=== PATIENT | male | born 1930 | race Caucasian/White ===

== ENCOUNTER 2016-09-27 20:49 | Inpatient (IN) | payer MEDICAID, MEDICARE ==
[~2016-09-27] VITALS: Ht 170.2 cm; Wt 64.9 kg
--- NOTE | 2016-09-27 20:55 | NUR ---
PATIENT BROUGHT IN BY DAUGHTER FOR C/O WEAKNESS,DIZZINESS X1 DAY.AUDITORY AND VISUAL HALLUCINATION X 1 WEEK, DAUGHTER ASKED FOR ASSIST INTO WHEELCHAIR, PT IS ALERT, ORIENTED X 3, NO RESP DISTRESS NOTED OR REPORTED UPON ASSESSMENT...MD AT BEDSIDE...
[2016-09-27] MEDS ORDERED: DOCU100C36 PO (21:09)
[2016-09-27] MEDS ORDERED: POTA10TA15 PO (21:09)
[2016-09-27] MEDS ORDERED: FURO40TA5 PO (21:09)
[2016-09-27] MEDS ORDERED: MAGN400O6 PO (21:09)
[2016-09-27] MEDS ORDERED: METOPROLOL ER PO (21:09)
[2016-09-27] MEDS ORDERED: ACET-2154 PO (21:09)
[2016-09-27] MEDS ORDERED: APIX5TAB PO (21:09)
[2016-09-27] MEDS ORDERED: HYDR-3326 PO (21:09)
[2016-09-27] MEDS ORDERED: LORA0.5T PO (21:09)
[2016-09-27] MEDS ORDERED: MORP15TA SL (21:09)
[2016-09-27] MEDS ORDERED: IV NORMAL SALINE 500 ML BAG IV ONE (21:30)
[2016-09-27 21:31] LABS: BASOPHILS # (AUTO) 0.3 K/uL (0.0-8.0); BASOPHILS % (AUTO) 1.8 % (0.0-2.0); EOSINOPHILS # (AUTO) 0.1 K/uL (0.0-0.7); EOSINOPHILS % (AUTO) 0.6 % (0.0-7.0); HEMATOCRIT 39.6 % (40-50); HEMOGLOBIN 13.3 G/DL (14.0-18.0); LYMPHOCYTES # (AUTO) 2.1 K/UL (0.8-4.8); LYMPHOCYTES % (AUTO) 12.5 % (20.5-51.5); MEAN CORPUSCULAR HEMOGLOBIN 31.9 UUG (27.0-31.0); MEAN CORPUSCULAR HGB CONC 34 g/dL (32.0-37.0); MEAN CORPUSCULAR VOLUME 95.1 FL (82.0-92.0); MONOCYTES # (AUTO) 1.2 K/UL (0.1-1.30); MONOCYTES % (AUTO) 7.1 % (0.0-11.0); NEUTROPHILS # (AUTO) 13.3 K/UL (1.8-8.9); PLATELET COUNT (AUTO) 715 K/UL (150-450); RED BLOOD CELL COUNT(AUTO) 4.16 MIL/UL (4.7-6.1)
[2016-09-27 21:43] LABS: CARBON DIOXIDE 26 mmol/L (21-32); CHLORIDE 95 mmol/L (98-107); GLUCOSE 158 mg/dL (74-106); POTASSIUM 4.4 mmol/L (3.5-5.1); UREA NITROGEN, BLOOD 17 mg/dL (7-18)
[2016-09-27 21:55] LABS: ALANINE AMINOTRANSFERASE 15 U/L (16-63); ALKALINE PHOSPHATASE 188 U/L (50-136); ASPARTATE AMINOTRANSFERASE 29 U/L (15-37); BILIRUBIN,DIRECT 0.2 mg/dL (0.0-0.2); BILIRUBIN,TOTAL 0.6 mg/dL (0.2-1.0); TOTAL PROTEIN, SERUM 7.5 g/dL (6.4-8.2)
--- NOTE | 2016-09-27 22:41 | NUR ---
Pt. admitted to [facility]LE[facility] , under care of Dr. WOODSON, Belongs List completed, Pt is alert, oriented x 2-3, no resp distress noted or reported upon transfer assessment... pt to be transferred via gurney...
[2016-09-27 22:43] LABS: *BILIRUBIN,URIN NEGATIVE (NEGATIVE); *BLOOD, URINE 2+ (NEGATIVE); *CLARITY,URINE SLIGHTLY CLOUDY (CLEAR); *COLOR,URINE YELLOW (YELLOW); *KETONES,URINE NEGATIVE (NEGATIVE); *PROTEIN,URINE NEGATIVE (NEGATIVE); *UROBILINOGEN,URINE 0.2 E.U./dl (NORMAL); LEUKOCYTE ESTERASE ,URINE 3+ (NEGATIVE); NITRITE, URINE NEGATIVE (NEGATIVE); UGLUCOSE NEGATIVE (NEGATIVE)
[2016-09-27 23:00] VITALS: BP 117/71
[2016-09-27 23:03] LABS: BACTERIA,URINE MODERATE /HPF (NONE SEEN); SQUAMOUS EPITHELIAL CELL,UR FEW /HPF (NONE SEEN)
--- NOTE | 2016-09-28 01:00 | NUR ---
DR. SOTO RETURNED THE PAGE WITH ORDERS, NOTED AND CARRIED OUT.
[2016-09-28 04:59] VITALS: BP 126/63
--- NOTE | 2016-09-28 05:00 | NUR ---
PATIENT SLEPT MOST OF THE NIGHT NO SOB NO CHEST PAIN NOTED, RYTHM HAS PAC WITH PVC, ATRAL TACHYCARDIA, BUT HEART RATE DOES NOT GET HIGHER ABNORMALLY, NO S/S OF DISTRESS.
[2016-09-28 06:55] LABS: BASOPHILS # (AUTO) 0.1 K/uL (0.0-8.0); BASOPHILS % (AUTO) 0.6 % (0.0-2.0); EOSINOPHILS # (AUTO) 0.1 K/uL (0.0-0.7); HEMATOCRIT 34.7 % (40-50); HEMOGLOBIN 11.8 G/DL (14.0-18.0); LYMPHOCYTES # (AUTO) 2.7 K/UL (0.8-4.8); LYMPHOCYTES % (AUTO) 20.8 % (20.5-51.5); MEAN CORPUSCULAR HEMOGLOBIN 31.8 UUG (27.0-31.0); MEAN CORPUSCULAR HGB CONC 34 g/dL (32.0-37.0); MEAN CORPUSCULAR VOLUME 93.3 FL (82.0-92.0); MONOCYTES # (AUTO) 1.2 K/UL (0.1-1.30); MONOCYTES % (AUTO) 9.2 % (0.0-11.0); NEUTROPHILS % (AUTO) 68.4 % (38.5-71.5); PLATELET COUNT (AUTO) 619 K/UL (150-450); RED BLOOD CELL COUNT(AUTO) 3.72 MIL/UL (4.7-6.1); WHITE BLOOD COUNT (AUTO) 13.1 K/UL (4.0-11.2)
[2016-09-28 07:04] LABS: ALANINE AMINOTRANSFERASE 12 U/L (16-63); ALKALINE PHOSPHATASE 166 U/L (50-136); ASPARTATE AMINOTRANSFERASE 24 U/L (15-37); BILIRUBIN,TOTAL 0.7 mg/dL (0.2-1.0); CARBON DIOXIDE 27 mmol/L (21-32); CHLORIDE 98 mmol/L (98-107); CREATININE 0.9 mg/dL (0.6-1.3); GLUCOSE 81 mg/dL (74-106); POTASSIUM 3.5 mmol/L (3.5-5.1); TOTAL PROTEIN, SERUM 6.6 g/dL (6.4-8.2); UREA NITROGEN, BLOOD 14 mg/dL (7-18)
[2016-09-28 07:18] LABS: THYROID STIMULATING HORMONE 4.577 mIU/mL (0.358-3.740)
--- NOTE | 2016-09-28 08:00 | NUR ---
RECEIVED PATIENT IN BED AWAKE ALERT AND ORIENTED X1-2 NO FACIAL GRIMACING OR S/S OF PAIN AT THIS TIME.NO SHORTNESS OF BREATH MADE COMFORTABLE AND WILL CONTINUE TO OBSERVE.
[2016-09-28] MEDS ORDERED: ACETAMINOPHEN 325 MG TABLET PO PRN (09:15)
[2016-09-28] MEDS ORDERED: APIXABAN 5 MG TABLET PO SCH ×2 (09:15→21:00)
[2016-09-28] MEDS ORDERED: MAGNESIUM HYDROXIDE 30 ML LIQUID UDC PO PRN (09:15)
[2016-09-28] MEDS ORDERED: HYDROCODONE/APAP 5-325MG TABLET PO PRN (09:15)
[2016-09-28] MEDS ORDERED: METOPROLOL SUCCINATE XL 25 MG TAB.SR.24H PO SCH (09:15)
[2016-09-28] MEDS ORDERED: DOCUSATE SODIUM 100 MG CAPSULE PO PRN (09:15)
--- NOTE | 2016-09-28 11:00 | NUR ---
PATIENT SEEN AND EXAMINED BY DR SETH WITH NEW ORDERS AND NOTED.
[2016-09-28] MEDS: METOPROLOL TARTRATE 25 MG TABLET PO SCH ×2 (11:15→20:42)
[2016-09-28] MEDS ORDERED: APIXABAN 5 MG TABLET PO ONE (11:30)
[2016-09-28] MEDS: FUROSEMIDE 40 MG TABLET PO SCH ×2 (11:38→16:24)
[2016-09-28] MEDS: POTASSIUM CHLORIDE 20 MEQ TAB.PRT.SR PO SCH (11:38)
[2016-09-28 11:55] VITALS: BP 106/67
[2016-09-28] MEDS ORDERED: CEFTRIAXONE 1 G VIAL IM SCH (12:45)
[2016-09-28] MEDS: CEFTRIAXONE 1 G in IV DEXTROSE 5% 50 ML IV SCH (13:54)
[2016-09-28] MEDS: Z GUARD REMEDY PASTE 57 GM TUBE TOP SCH ×2 (13:54→20:42)
--- NOTE | 2016-09-28 15:00 | NUR ---
PATIENT REMAIN ON ANTIBIOTICS ORDERED FOR URINARY TRACT INFECTION WITH NO ADVERSE OR ALLERGIC REACTIONS AT THIS TIME HEPLOCK ON HIS RIGHT FOREARM REMAIN INTACT FLUSHED PER PROTOCOL.
[2016-09-28 16:11] VITALS: BP 110/70
--- NOTE | 2016-09-28 18:00 | NUR ---
RESTING IN BED AWAKE ALERT SOMETIMED MIXED UP REQUIRING REDIRECTION AND IS USUALLY SAYING OKAY
[2016-09-28 19:00] VITALS: BP 124/89
--- NOTE | 2016-09-28 20:00 | NUR ---
patient awake,alert, forgetful,A fib with frequent pvc's on tele monitor,patient denies pain/discomfort,safety precautions, bed alarm on,patient placed close to nsg station for closely monitor.
[2016-09-28] MEDS: LORAZEPAM 0.5 MG TABLET PO PRN (20:41)
[2016-09-28] MEDS: APIXABAN 5 MG TABLET PO SCH (20:42)
[2016-09-29] VITALS: BP 120/77
[2016-09-29 04:00] VITALS: BP 128/74
[2016-09-29 06:44] LABS: BASOPHILS # (AUTO) 0.1 K/uL (0.0-8.0); BASOPHILS % (AUTO) 0.5 % (0.0-2.0); EOSINOPHILS # (AUTO) 0.1 K/uL (0.0-0.7); EOSINOPHILS % (AUTO) 1.1 % (0.0-7.0); HEMATOCRIT 35.2 % (40-50); HEMOGLOBIN 11.9 G/DL (14.0-18.0); LYMPHOCYTES # (AUTO) 2.5 K/UL (0.8-4.8); MEAN CORPUSCULAR HEMOGLOBIN 32.1 UUG (27.0-31.0); MEAN CORPUSCULAR HGB CONC 34 g/dL (32.0-37.0); MEAN CORPUSCULAR VOLUME 94.9 FL (82.0-92.0); MONOCYTES # (AUTO) 1.1 K/UL (0.1-1.30); MONOCYTES % (AUTO) 9.6 % (0.0-11.0); NEUTROPHILS % (AUTO) 67.8 % (38.5-71.5); WHITE BLOOD COUNT (AUTO) 11.8 K/UL (4.0-11.2)
[2016-09-29 06:58] LABS: CARBON DIOXIDE 31 mmol/L (21-32); CHLORIDE 97 mmol/L (98-107); CREATININE 0.9 mg/dL (0.6-1.3); GLUCOSE 86 mg/dL (74-106); MAGNESIUM 1.8 mg/dL (1.8-2.4); PHOSPHOROUS 3.8 mg/dL (2.5-4.9); POTASSIUM 3.3 mmol/L (3.5-5.1); UREA NITROGEN, BLOOD 17 mg/dL (7-18)
[2016-09-29 07:28] LABS: PLATELET COUNT (AUTO) 610 K/UL (150-450)
--- NOTE | 2016-09-29 08:00 | NUR ---
Pt is in no acute distress. PT confused reoriented to time and place. PT pulled iv on right ac. Dr Olivares here to see pt.
[2016-09-29] MEDS: FUROSEMIDE 40 MG TABLET PO SCH ×2 (08:18→16:36)
[2016-09-29] MEDS: POTASSIUM CHLORIDE 20 MEQ TAB.PRT.SR PO SCH (08:18)
[2016-09-29] MEDS: METOPROLOL TARTRATE 25 MG TABLET PO SCH ×2 (08:25→20:26)
[2016-09-29] MEDS: Z GUARD REMEDY PASTE 57 GM TUBE TOP SCH ×2 (08:27→20:27)
[2016-09-29] MEDS: APIXABAN 5 MG TABLET PO SCH ×2 (08:27→20:27)
[2016-09-29] MEDS ORDERED: APIXABAN 5 MG TABLET PO SCH ×2 (09:00)
[2016-09-29 11:45] VITALS: BP 118/71
[2016-09-29] MEDS ORDERED: POTASSIUM CHLORIDE 20 MEQ TAB.PRT.SR PO ONE (13:15)
[2016-09-29] MEDS: CEFTRIAXONE 1 G in IV DEXTROSE 5% 50 ML IV SCH (13:52)
[2016-09-29 15:57] VITALS: BP 100/69
--- NOTE | 2016-09-29 18:00 | NUR ---
PT with daughter at bedside. IV on right arm intact. PT had x1 bm tonight. Call light is within reach.
[2016-09-29 20:00] VITALS: BP 113/70
[2016-09-29] MEDS: LORAZEPAM 0.5 MG TABLET PO PRN (20:25)
[2016-09-30 05:00] VITALS: BP 120/70
--- NOTE | 2016-09-30 06:00 | NUR ---
PATIENT MORE ALERT,NO APPARENT DISTRESS,VITAL SIGNS REMAINS STABLE,NO C/O PAIN OR DISCOMFORT,PATIENT HAS SMALL SKIN ABRASION NOTED TO RIGHT BUTTOCK,PICTURE TAKEN,Z GUARD PASTE AND MAPILEX APPLIED, TURN AND REPOSITION.
[2016-09-30 06:59] LABS: BASOPHILS # (AUTO) 0.1 K/uL (0.0-8.0); BASOPHILS % (AUTO) 0.5 % (0.0-2.0); EOSINOPHILS # (AUTO) 0.1 K/uL (0.0-0.7); EOSINOPHILS % (AUTO) 1.2 % (0.0-7.0); HEMATOCRIT 34.2 % (40-50); HEMOGLOBIN 11.5 G/DL (14.0-18.0); LYMPHOCYTES # (AUTO) 2.2 K/UL (0.8-4.8); LYMPHOCYTES % (AUTO) 19.9 % (20.5-51.5); MEAN CORPUSCULAR HGB CONC 34 g/dL (32.0-37.0); MEAN CORPUSCULAR VOLUME 95.1 FL (82.0-92.0); MONOCYTES # (AUTO) 0.9 K/UL (0.1-1.30); MONOCYTES % (AUTO) 8.5 % (0.0-11.0); NEUTROPHILS # (AUTO) 7.8 K/UL (1.8-8.9); NEUTROPHILS % (AUTO) 69.9 % (38.5-71.5); PLATELET COUNT (AUTO) 603 K/UL (150-450); RED BLOOD CELL COUNT(AUTO) 3.59 MIL/UL (4.7-6.1); WHITE BLOOD COUNT (AUTO) 11.1 K/UL (4.0-11.2)
[2016-09-30 07:15] LABS: ALANINE AMINOTRANSFERASE 13 U/L (16-63); ALKALINE PHOSPHATASE 148 U/L (50-136); ASPARTATE AMINOTRANSFERASE 24 U/L (15-37); BILIRUBIN,TOTAL 0.4 mg/dL (0.2-1.0); CARBON DIOXIDE 29 mmol/L (21-32); CHLORIDE 98 mmol/L (98-107); CREATININE 0.9 mg/dL (0.6-1.3); GLUCOSE 87 mg/dL (74-106); MAGNESIUM 1.7 mg/dL (1.8-2.4); PHOSPHOROUS 3.6 mg/dL (2.5-4.9); POTASSIUM 3.4 mmol/L (3.5-5.1); TOTAL PROTEIN, SERUM 6.5 g/dL (6.4-8.2); UREA NITROGEN, BLOOD 13 mg/dL (7-18)
--- NOTE | 2016-09-30 07:20 | NUR ---
RECEIVED REPORT FROM TIMING INSPECTOR NURSE, PATIENT IN BED, SAFETY CHECK, BED IN LOW POSITION, SIDE RAILS UP X.2, BED ALARM ON .
[2016-09-30] MEDS ORDERED: APIX5TAB PO (08:02)
[2016-09-30] MEDS ORDERED: CEFT1VIA15 IV (08:02)
[2016-09-30] MEDS: Z GUARD REMEDY PASTE 57 GM TUBE TOP SCH ×2 (09:03→21:07)
[2016-09-30] MEDS: METOPROLOL TARTRATE 25 MG TABLET PO SCH ×2 (09:03→21:00)
[2016-09-30] MEDS: FUROSEMIDE 40 MG TABLET PO SCH ×2 (09:03→17:54)
[2016-09-30] MEDS: APIXABAN 5 MG TABLET PO SCH ×2 (09:04→21:08)
[2016-09-30] MEDS: POTASSIUM CHLORIDE 20 MEQ TAB.PRT.SR PO SCH (09:04)
[2016-09-30] MEDS ORDERED: POTASSIUM CHLORIDE 20 MEQ TAB.PRT.SR PO ONE (10:00)
[2016-09-30] MEDS ORDERED: MAGNESIUM OXIDE 400 MG TABLET PO ONE (10:15)
[2016-09-30 12:13] VITALS: BP 96/54
--- NOTE | 2016-09-30 13:00 | NUR ---
PATIENT BECAME MODERATELY AGITATED AEB YELLING AT EVS STAFF, AND NURSING STAFF, BUT PATIENT QUICKLY CAME BACK TO BASELINE MENTAL STATUS AND APOLOGIZED.
[2016-09-30] MEDS: CEFTRIAXONE 1 G in IV DEXTROSE 5% 50 ML IV SCH (14:02)
[2016-09-30 16:30] VITALS: BP 118/73
--- NOTE | 2016-09-30 18:28 | NUR ---
GAVE REPORT TO METER READER CHIEF, PATIENT IN BED, BED IN LOW POSITION, NO EVIDENCE OF DISTRESS NOTED. BED ALARM ON AND SIDE RAILS UP X2.
[2016-09-30] MEDS: LORAZEPAM 0.5 MG TABLET PO PRN (21:06)
--- NOTE | 2016-09-30 22:51 | NUR ---
Repositioned in bed, routine night meds given patient cooperative w/ staff & treatment. Kept comfortable.
[2016-10-01 04:00] VITALS: BP 127/81
[2016-10-01 07:17] LABS: CARBON DIOXIDE 29 mmol/L (21-32); CHLORIDE 98 mmol/L (98-107); CREATININE 0.9 mg/dL (0.6-1.3); GLUCOSE 82 mg/dL (74-106); MAGNESIUM 1.7 mg/dL (1.8-2.4); POTASSIUM 3.5 mmol/L (3.5-5.1); UREA NITROGEN, BLOOD 17 mg/dL (7-18)
--- NOTE | 2016-10-01 07:20 | NUR ---
RECEIVED REPORT FROM DRILL OPERATOR AUTOMATIC NURSE, PATIENT IN BED, SIDE RAILS UP X2, BED IN LOW POSITION, BED ALARM ON. NO APPARENT DISTRESS NOTED.
[2016-10-01] MEDS: FUROSEMIDE 40 MG TABLET PO SCH ×2 (08:54→17:12)
[2016-10-01] MEDS: LORAZEPAM 0.5 MG TABLET PO PRN ×2 (08:54→08:55)
[2016-10-01] MEDS: POTASSIUM CHLORIDE 20 MEQ TAB.PRT.SR PO SCH (08:54)
[2016-10-01] MEDS: METOPROLOL TARTRATE 25 MG TABLET PO SCH ×2 (08:56→20:33)
[2016-10-01] MEDS: Z GUARD REMEDY PASTE 57 GM TUBE TOP SCH ×2 (08:59→20:33)
[2016-10-01] MEDS: APIXABAN 5 MG TABLET PO SCH ×2 (08:59→20:33)
[2016-10-01 11:49] VITALS: BP 99/77
--- NOTE | 2016-10-01 13:00 | NUR ---
Patient has had intermittent episodes of agitated behavior. Patient has been yelling at staff, and appeared to be in emotional distress.
[2016-10-01] MEDS: MAGNESIUM SULFATE/D5W 100 ML IV SCH ×2 (13:38→14:15)
[2016-10-01] MEDS: CEFTRIAXONE 1 G in IV DEXTROSE 5% 50 ML IV SCH (14:00)
[2016-10-01 15:50] VITALS: BP 118/67
--- NOTE | 2016-10-01 18:52 | NUR ---
patient is in bed, calm and cooperative. No evidence of distress/pain noted. Safety check, bed in low position, side rails up x2 bed alarm on.
--- NOTE | 2016-10-01 20:00 | NUR ---
RECEIVED PATIENT AWAKE IN BED WITH DAUGHTER AT BEDSIDE. PATIENT IS A/OX2. FORGETFUL AT TIMES. VERY PLEASANT WHEN APPROACHED. HEPLOCK INTACT AND PATENT, NOTED TO RIGHT FA #20 GAUGE. PATIENT DENIES PAIN OR DISCOMFORT. NO RESP. DISTRESS NOTED. BED ALARM ON. CALL LIGHT IN REACH. ALL NEEDS ATTENDED. WILL CONTINUE TO MONITOR.
[2016-10-01 20:21] VITALS: BP 117/80
[2016-10-02 06:26] LABS: CARBON DIOXIDE 28 mmol/L (21-32); CHLORIDE 96 mmol/L (98-107); CREATININE 0.9 mg/dL (0.6-1.3); GLUCOSE 87 mg/dL (74-106); POTASSIUM 3.3 mmol/L (3.5-5.1); UREA NITROGEN, BLOOD 14 mg/dL (7-18)
[2016-10-02 06:49] VITALS: BP 126/88
--- NOTE | 2016-10-02 07:10 | NUR ---
PATIENT RECEIVED IN ROOM ALERT AWAKE IN NO ACUTE DISTRESS. RESPIRATIONS EVEN AND UNLABORED. FALL PRECAUTIONS IN PLACE.
[2016-10-02] MEDS: FUROSEMIDE 40 MG TABLET PO SCH ×2 (08:53→17:28)
[2016-10-02] MEDS: POTASSIUM CHLORIDE 20 MEQ TAB.PRT.SR PO SCH (08:59)
[2016-10-02] MEDS: METOPROLOL TARTRATE 25 MG TABLET PO SCH ×2 (08:59→20:38)
[2016-10-02] MEDS: APIXABAN 5 MG TABLET PO SCH ×2 (09:06→20:38)
[2016-10-02] MEDS: Z GUARD REMEDY PASTE 57 GM TUBE TOP SCH ×2 (09:09→20:38)
[2016-10-02 11:31] VITALS: BP 109/72
[2016-10-02] MEDS: CEPHALEXIN MONOHYDRATE 250 MG CAPSULE PO SCH ×3 (14:30→21:37)
[2016-10-02] MEDS ORDERED: POTASSIUM CHLORIDE 20 MEQ TAB.PRT.SR PO ONE (15:30)
[2016-10-02 15:41] VITALS: BP 101/69
--- NOTE | 2016-10-02 18:42 | NUR ---
END OF SHIFT NOTE: PATIENT IN NO ACUTE DISTRESS THROUGHOUT SHIFT. VSS. DENIED PAIN. COMPLIANT WITH CARE. TURNED AND REPOSITIONED EVERY 2 HOURS AND PRN. NEEDS MET BY STAFF. CALL LIGHT AT REACH.
[2016-10-02 19:00] VITALS: BP 114/75
--- NOTE | 2016-10-02 20:00 | NUR ---
RECEIVED PATIENT AWAKE IN BED. A/O X2. FORGETFUL AT TIME. DENIES PAIN OR DISCOMFORT. NO RESP. DISTRESS NOTED. H/L INTACT AND PATENT. BED ALARM ON. CALL LIGHT IN REACH. ALL NEEDS ATTENDED. WILL CONTINUE TO MONITOR.
[2016-10-02] MEDS: LORAZEPAM 0.5 MG TABLET PO PRN (20:54)
--- NOTE | 2016-10-02 21:15 | NUR ---
PATIENT APPEARS ANXIOUS. PATIENT GIVEN ATIVAN 0.5MG PO PRN FOR ANXIETY.
[2016-10-02] MEDS ORDERED: CEPHALEXIN MONOHYDRATE 125 MG/5 ML SUSPENSION 100ML NG SCH (22:00)
--- NOTE | 2016-10-03 | NUR ---
PATIENT AWAKE IN BED. VERY RESTLESS. CONFUSED AT TIMES. WILL CONTINUE TO MONITOR.
[2016-10-03 04:00] VITALS: BP 124/83
[2016-10-03] MEDS: CEPHALEXIN MONOHYDRATE 250 MG CAPSULE PO SCH ×4 (06:00→22:55)
--- NOTE | 2016-10-03 06:00 | NUR ---
PATIENT ASLEEP IN BED. PATIENT WAS VERY RESTLESS THROUGHOUT THE NIGHT. REFUSING PO KEFLEX AT THIS TIME. REDNESS NOTED AROUND H/L AND UNABLE TO FLUSH. PATIENT REFUSING FOR H/L TO BE REMOVED AT THIS TIME. EASILY AGITATED. VSS. BED ALARM ON. CALL LIGHT IN REACH. ALL NEEDS ATTENDED. WILL CONTINUE TO MONITOR.
--- NOTE | 2016-10-03 07:25 | NUR ---
RECEIVED REPORT FROM CARBONATOR NURSE, PATIENT IN BED SLEEPING, SIDE RAILS UP X2, BED IN LOW POSITION, BED ALARM ON. FOUND LOWER DENTURE ON TOP OF BLANKET, PUT IN BATHROOM BASIN, TO BE TRANSFERRED TO A DENTURE CUP.
[2016-10-03 08:19] LABS: CARBON DIOXIDE 30 mmol/L (21-32); CHLORIDE 98 mmol/L (98-107); CREATININE 0.9 mg/dL (0.6-1.3); GLUCOSE 82 mg/dL (74-106); POTASSIUM 3.4 mmol/L (3.5-5.1); UREA NITROGEN, BLOOD 14 mg/dL (7-18)
[2016-10-03] MEDS: FUROSEMIDE 40 MG TABLET PO SCH ×2 (08:53→17:01)
[2016-10-03] MEDS: APIXABAN 5 MG TABLET PO SCH ×2 (08:55→22:56)
[2016-10-03] MEDS: POTASSIUM CHLORIDE 20 MEQ TAB.PRT.SR PO SCH (08:57)
[2016-10-03] MEDS: Z GUARD REMEDY PASTE 57 GM TUBE TOP SCH ×2 (08:57→21:00)
[2016-10-03] MEDS: METOPROLOL TARTRATE 25 MG TABLET PO SCH ×2 (09:00→22:56)
--- NOTE | 2016-10-03 09:45 | NUR ---
PATIENT HAS BEEN EXTREMELY ANXIOUS AND AGITATED FOR ABOUT AN HOUR, YELLING AT STAFF, PULLING AT LINE. PATIENT OFFERED PRN MEDICATION TO RELIEVE ANXIETY AND AGITATION.
[2016-10-03] MEDS: LORAZEPAM 0.5 MG TABLET PO PRN (09:55)
[2016-10-03] MEDS ORDERED: POTASSIUM CHLORIDE 20 MEQ TAB.PRT.SR PO ONE (10:15)
[2016-10-03 11:54] VITALS: BP 101/59
[2016-10-03 16:39] VITALS: BP 119/77
[2016-10-03 20:15] VITALS: BP 107/56
[2016-10-04 06:33] VITALS: BP 110/76
[2016-10-04] MEDS: CEPHALEXIN MONOHYDRATE 250 MG CAPSULE PO SCH (06:49)
[2016-10-04 07:28] LABS: CARBON DIOXIDE 29 mmol/L (21-32); CHLORIDE 97 mmol/L (98-107); CREATININE 0.9 mg/dL (0.6-1.3); GLUCOSE 90 mg/dL (74-106); POTASSIUM 3.5 mmol/L (3.5-5.1); UREA NITROGEN, BLOOD 18 mg/dL (7-18)
--- NOTE | 2016-10-04 07:30 | NUR ---
RECEIVED REPORT FROM CHUCKING MACHINE OPERATOR NURSE, PATIENT IN BED SLEEPING, BED IN LOW POSITION, SIDE RAILS UP X2, NO EVIDENCE OF DISTRESS/DISCOMFORT.
[2016-10-04] MEDS: FUROSEMIDE 40 MG TABLET PO SCH (08:41)
[2016-10-04] MEDS: Z GUARD REMEDY PASTE 57 GM TUBE TOP SCH (08:42)
[2016-10-04] MEDS: POTASSIUM CHLORIDE 20 MEQ TAB.PRT.SR PO SCH (08:42)
[2016-10-04] MEDS: APIXABAN 5 MG TABLET PO SCH (08:42)
[2016-10-04] MEDS: METOPROLOL TARTRATE 25 MG TABLET PO SCH (08:43)
--- NOTE | 2016-10-04 12:00 | NUR ---
patient was agitated and yelling at staff and family members. Discharge orders received, and wheel chair has been ordered for patient by senior materials planner.
[2016-10-04 12:07] VITALS: BP 104/60
--- NOTE | 2016-10-04 12:21 | NUR ---
The patient will be discharged today to [facility] [ ; [address] [place] [id number]] and his daughter, Xiomara [ ], will be picking him up via private car. Spoke to Renetta from the [facility] and she confirmed that they will admit the patient today and they already have the Eliquis and Keflex in the facility. The patient's daughter requested for his continued medication to be filled as well because the last facility he was in did not give him medications. Madisyn from Dr. John Elizabeth's office will call the Rx in to [facility] [ ]. [employer] provided his wheelchair and was delivered to his room. His RN, Tammy, is aware of his discharge plan.
--- NOTE | 2016-10-04 15:15 | NUR ---
Patient was transferred from bed to wheel chair by staff, and taken to daughters vehicle. Patient will be driven by family to [facility]. All medication orders have been called into [facility] pharmacy in [place] per daughters request. Patients family has been advised to find a primary care physician for patient near intermediate home for follow up with prescriptions.
== END 2016-10-04 15:30 | DRG 871 ==
LOC: ER 20:52 → TELE 22:47 → MED 09-29 18:46
PROVIDERS: ADMIT Internal Medicine; ATTEND Internal Medicine
DX: A41.9 Sepsis, unspecified organism (principal); R53.2 Functional quadriplegia; I50.33 Acute on chronic diastolic (congestive) heart failure; N39.0 Urinary tract infection, site not specified; B96.4 Proteus (mirabilis) (morganii) as the cause of diseases classified elsewhere; Z74.01 Bed confinement status; I48.2 Chronic atrial fibrillation; Z79.01 Long term (current) use of anticoagulants; Z66 Do not resuscitate; K21.9 Gastro-esophageal reflux disease without esophagitis; D64.9 Anemia, unspecified; Z87.19 Personal history of other diseases of the digestive system; I11.0 Hypertensive heart disease with heart failure; M62.50 Muscle wasting and atrophy, not elsewhere classified, unspecified site; R53.81 Other malaise; R26.9 Unspecified abnormalities of gait and mobility
CPT/HCPCS: 36415; 70030-TC; 71010; 82746; 83735; 84100; 84443; 85025; 85730; 86592; 87077; 87086; 93005; 97161; 97530; A4663; J0696; J3475; J7040; J7050; J7060